=== PATIENT | female | born 1975 | race Caucasian/White ===

== ENCOUNTER → 2017-12-18 | Outpatient (CLI) | payer BC, OTHER ==
--- NOTE | 2017-12-19 11:43 | RADIOLOGY IMAGING REPORT ---
FACILITY: [facility] - [place] PATIENT NAME: AMY YOUSSEF : [id number] MR: [id number] V: [id number] EXAM DATE: ORDERING PHYSICIAN: ALDO DUPONT TECHNOLOGIST: Pao Jiménez PROCEDURE:BILATERAL DIGITAL SCREENING MAMMOGRAM WITH CAD ASSISTED INTERPRETATION & 3D TOMOSYNTHESIS COMPARISON:Prior mammograms 12/16/16, 04/29/16, 12/25/15, 12/11/15. INDICATIONS:screening FINDINGS: A small amount of fibroglandular tissue is seen throughout the breasts. The parenchymal pattern has remained stable allowing for difference in mammographic technique & patient positioning. There is no evidence of malignant appearing mass, malignant appearing calcifications or other secondary sign of malignancy in either breast. DIAGNOSTIC CATEGORY 1--NEGATIVE. RECOMMENDATIONS: ROUTINE MAMMOGRAM AND CLINICAL EVALUATION. IMPRESSION: BIRADS 1: Negative. No significant abnormality is seen. Dictated by: Ghazal Andrews M.D. on 12/18/2017 at 17:46 Transcribed by: LELE on 12/19/2017 at 8:50 Approved by: Ghazal Andrews M.D. on 12/19/2017 at 11:42 [facility]
== END ==
LOC: MAMO 01:50
PROVIDERS: ATTEND Nurse Practitioner Family
DX: Z12.31 Encounter for screening mammogram for malignant neoplasm of breast (principal)
CPT/HCPCS: 77063; 77067